=== PATIENT | male | born 2000 | race Two or more races ===

== ENCOUNTER 2024-12-07 05:50 | Day surgery (SDC) | payer MEDICAID, SELFPAY ==
[2024-12-06 08:21] VITALS: BMI 24.8
[2024-12-06 09:13] LABS: Basophils # (Auto) 0.1 Thou/mm3 (0.0-0.2); Basophils % (Auto) 1 % (0-2.5); Eosinophils # (Auto) 0.2 Thou/mm3 (0.0-0.5); Eosinophils % (Auto) 2 % (0-10); Hematocrit 45.5 % (41.0-53.0); Hemoglobin 15.2 g/dL (13.5-16.0); Immature Granulocytes Auto 0.03 Thou/mm3 (0.00-0.00); Lymphocytes # (Auto) 3.6 Thou/mm3 (1.0-4.8); Lymphocytes % (Auto) 47 % (10-50); Mean Corpuscular HGB Conc 33.4 g/dl (31.0-37.0); Mean Corpuscular Hemoglobin 30.0 pg (25.0-35.0); Mean Corpuscular Volume 90 fL (80-100); Monocytes # (Auto) 0.7 Thou/mm3 (0.0-0.8); Monocytes % (Auto) 10 % (0-12); Neutrophils # (Auto) 3.0 Thou/mm3 (1.8-7.7); Neutrophils % (Auto) 40 % (37-80); Nucleated Red Blood Cell # 0.00 Thou/mm3 (0.00-0.00); Nucleated Red Blood Cell % 0 /100 WBC (0); Platelet Count 293 Thou/mm3 (140-440); RDW Standard Deviation 40.7 fL (35.1-43.9); Red Blood Count 5.06 Miln/mm3 (4.50-5.90); White Blood Count 7.5 Thou/mm3 (3.8-10.6)
[2024-12-06 09:20] LABS: INR 1.0 (0.9-1.3); Partial Thromboplastin Time 26.9 Seconds (22.0-36.0); Prothrombin Time 10.6 Seconds (9.0-12.2)
[2024-12-06 09:22] LABS: Alanine Aminotransferase 20 U/L (10-49); Albumin, Serum 4.4 gm/dL (3.5-5.0); Albumin/Globulin Ratio 1.9 (1.2-2.2); Alkaline Phosphatase 96 U/L (46-116); Anion Gap 7 (7-16); Aspartate Amino Transferase 18 U/L (0-34); BUN/Creatinine Ratio 15 Ratio (12-20); Bilirubin,Total 0.2 mg/dL (0.3-1.2); Blood Urea Nitrogen 16 mg/dL (9-23); Calcium 9.6 mg/dL (8.3-10.6); Calcium (Corrected) 9.6 mg/dL (8.5-10.1); Carbon Dioxide 28.2 mMol/L (20.0-31.0); Chloride 104 mMol/L (98-107); Creatinine (Component) 1.1 mg/dL (0.6-1.3); Estimated Creatinine Clearance 101.8 mL/min (>60); Globulin 2.3 gm/dL (2.3-3.5); Glucose 97 mg/dL (74-106); Osmolality,Calculated 278 (275-295); Potassium 4.2 mMol/L (3.4-5.1); Sodium 139 mMol/L (136-145); Total Protein 6.7 gm/dL (5.7-8.2); eGFR > 60 See Note
--- NOTE | 2024-12-06 18:52 | ESHP_ITS ---
RE: BHARATITRIP [place] : 2000 DATE OF ADMISSION: 12/07/2024 HISTORY OF PRESENT ILLNESS: This patient is a 24-year-old male, who was seen at the [facility] a little more than a month ago. He only speaks Telugu. The patient was seen in consultation because of a large right inguinal hernia. 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 He is involved in lifting heavy objects at work and it causes pain and it is interfering with his work. At the present time, he is not able to go back to work because of this hernia. PAST MEDICAL HISTORY: Essentially unremarkable. PAST SURGERY: Consists of laparoscopic appendectomy 1 year ago. PHYSICAL EXAMINATION: GENERAL: Revealed a well-built, well-nourished male, who speaks only Telugu. He is 5 feet 7 inches tall, weighing 168 pounds. VITAL SIGNS: Revealed blood pressure of 143/82 and pulse rate was 76. BMI was 23.57. HEENT: Examination of the head was normal. Examination of eyes, ears and throat was normal. NECK: Examination of the neck was normal. CHEST: Revealed good breath sounds on both sides. HEART: Sinus rhythm with no murmurs. ABDOMEN: Showed laparoscopic scar from the recent appendectomy last year. The patient had a large right inguinal hernia, which is extending into the scrotum. This is reducible. Left groin appears normal. IMPRESSION: Symptomatic left inguinal hernia. COURSE OF ACTION: Advised patient to undergo repair of left inguinal hernia. The procedure was explained to him in detail and he is agreeable. DT: 18:31:07 TT: 18:51:00 Ref: [id number] - TID: [id number]
[2024-12-07] VITALS (7 sets, daily range): BP systolic 134–159; BP diastolic 78–102; PULSE 58–111; RESP 12–20; TEMP 36.4–36.6; O2SAT 97–100; BMI 24.5
--- NOTE | 2024-12-07 07:25 | SUR.PREOP ---
Patient expressed gratitude for prayer before their procedure.
--- NOTE | 2024-12-07 10:03 | SUR.PHASEI ---
1003: Pt. AAOx4, vitals stable, breathing unlabored, no complaint of pain or nausea, dressing to right lower ABD CDI, no active bleed noted, report received from Carlos KHALIL and Mary FLORES.
--- NOTE | 2024-12-07 10:03 | ESOP_ITS ---
Date of Procedure 12/07/24 Pre Op Diagnosis Symptomatic right inguinal hernia Post Op Diagnosis Same, indirect in type Procedure Repair of the right indirect inguinal hernia with high ligation of the sac and placement of 2 x 4 Marlex mesh on the floor of the inguinal canal Findings Patient was found to have a large right inguinal hernia extending into the scrotum and the sac was firmly adherent to the cord structure Procedure Description After the patient was given endotracheal anesthesia his lower abdomen was prepped with chloreprep solution and draped. Standard right groin incision was made in the external oblique was reached. Incision was made over the external oblique and the patient was found to have a large sac next to the cord structures. The cord structures were encircled around a [place] drain and the sac was easily . It was opened and was found to contain no structures. The sac was very thin and it was narrow at the internal ring. I carefully from the cord structures with fine dissection and avoiding bleeding and then the sac. I suture ligated this with 2-0 chromic and then divided. Another 2-0 chromic suture ligation was used to prevent any slippage of the previous suture. Then I palpated the floor of the inguinal canal which appeared to be strong. I placed a 2 x 4 Marlex mesh and attached it medially to the pubic tubercle and laterally it was tucked underneath the external oblique after crossing the cord structures. I placed one stitch of Prolene lateral to the cord structures. Then external oblique was closed with running 2-0 Vicryl and subcutaneous tissues was approximated with 30 plain I injected half percent Marcaine with epinephrine for analgesia and the skin was closed with 4-0 Monocryl. Dressing was applied with Adaptic and 4 x 4 and the patient tolerated the procedure well and left operating room in stable condition. Anesthesia GETA Implants To be 4 Marlex mesh Pathology / specimen None Estimated Blood Loss 20 Condition Stable Disposition PACU Surgeon Herber Zhang MD Surgical Staff Operation Date: 12/07/24 08:00 Case Staff [employer]: Sudhakar Bar
[2024-12-07] MEDS: ONDANSETRON INJ 2 MG/ML INJ 2 ML 4 MG IV (10:26)
--- NOTE | 2024-12-07 10:55 | SUR.PHASEII ---
1055: Pt. AAOx4, vitals stable, breathing unlabored, no complaint of pain or nausea, dressing to right lower ABD CDI, no active bleed noted, pt. tolerated sips of water well, pt. ambulated to wheelchair with steady gait and no assist, no complications. Gave discharge instructions to the pt. and his ride, both verbalized understanding and had no further questions. Pt. left with all personal belongings.
== END 2024-12-07 10:55 | disposition home or self-care (01) ==
PROVIDERS: PCP Family Medicine; Referring Provider Surgery; Visit Provider Surgery
PROC: (CPT 49505; principal; 2024-12-07 08:00)
DX: K40.90 Unilateral inguinal hernia, without obstruction or gangrene, not specified as recurrent (principal)
CPT/HCPCS: 49505; 36415; 80053; 85025; 85610; 85730; A4649; C1781; J0131; J1171; J1885; J2250; J2405; J2704; J3010; J3490; A9270; J1596